=== PATIENT | male | born 1985 | race Caucasian/White ===

== ENCOUNTER 2017-05-08 01:17 | Emergency (ER) | payer OTHER ==
[~2017-05-08] VITALS: Ht 170.2 cm; Wt 99.8 kg
[~2017-05-08 01:17] MED LIST: BACTRIM DS TAB1 EACH PO; DOXYCYCLINE 10100 MG PO; DOXYCYCLINE HY100 M3 PO; IBUPROFEN 600600 M1 PO; NORCO 5-325 TA1 EACH PO; ULTRAM 50MG TAB50 MG PO
[2017-05-08] MEDS ORDERED: AMOXICILLIN 50500 M1 PO (01:55)
[2017-05-08 02:13] VITALS: BP 141/82
== END 2017-05-08 02:14 | disposition home or self-care (01) ==
LOC: ER 01:17
DX: J02.0 Streptococcal pharyngitis (principal); F17.210 Nicotine dependence, cigarettes, uncomplicated; F10.99 Alcohol use, unspecified with unspecified alcohol-induced disorder

== ENCOUNTER 2017-05-10 21:10 | Emergency (ER) | payer OTHER ==
[~2017-05-10] VITALS: Ht 170.2 cm; Wt 99.8 kg
[~2017-05-10 21:10] MED LIST changes: +AMOXICILLIN 50500 M1 PO
[2017-05-10 23:16] VITALS: BP 133/81
== END 2017-05-10 23:17 | disposition left against medical advice (07) ==
LOC: ER 21:10
DX: Z53.21 Procedure and treatment not carried out due to patient leaving prior to being seen by health care provider (principal)

== ENCOUNTER 2017-11-22 19:16 | Emergency (ER) | payer OTHER ==
[~2017-11-22] VITALS: Ht 170.2 cm; Wt 95.3 kg
== END 2017-11-22 19:54 | disposition left against medical advice (07) ==
LOC: ER 19:16
DX: Z53.21 Procedure and treatment not carried out due to patient leaving prior to being seen by health care provider (principal); F17.210 Nicotine dependence, cigarettes, uncomplicated